=== PATIENT | female | born 1960 | race Caucasian/White ===

== ENCOUNTER → 2016-11-10 | Outpatient (CLI) | payer MEDICARE, MEDICAID ==
[2015-01-31 05:30] VITALS: BP 115/52
[~2016-11-10] MED LIST: AMLO25PO MC; CITA40TA5 PO; LEVO100T PO; LISI10TA2 PO; MELO15TA6 PO; MORP30TA PO; OXYC-250 PO; OXYC10TA PO; OXYC40TA21 PO; TRAM50TA PO
--- NOTE | 2016-11-10 12:25 | RAD ---
CT of the thoracic spine without contrast, 11/10/2016: History: Back pain Noncontrast scans were obtained with multiplanar reconstructions produced. No fracture or destructive bony lesion is seen. There are mild scattered anterior spurs. There are mild degenerative changes involving scattered facet joints bilaterally. The disc margins are not clearly defined in this patient. There is no evidence of central spinal stenosis. There has been a lower cervical anterior fusion with a fixation plate and screws in place. IMPRESSION: 1. Mild scattered degenerative changes. 2. No acute abnormality is detected. PQRS Compliance Statement: One or more of the following individualized dose reduction techniques were utilized for this examination: 1. Automated exposure control 2. Adjustment of the mA and/or kV according to patient size 3. Use of iterative reconstruction technique
--- NOTE | 2016-11-10 12:42 | RAD ---
Indication back pain. Axial images through the lumbar spine were obtained. The thoracic spine was also evaluated which is the subject of a separate dictation. There is a left adrenal adenoma similar to a study 03/18/2015. Known right renal cyst is reproduced. A definite significant soft tissue finding in the visualized abdomen or pelvis is not seen. Spinal fixation cage is noted at L4-5. There is considerable disc space narrowing at L4-5. Vertebral height is well maintained. There is very minimal anterolisthesis of L4 relative to L5. An acute bony finding in the lumbar spine is not seen. Additional facet degenerative changes are seen at L2-3 and L3-4. Laminectomy defect on the right is seen at L4. The thoracolumbar junction is unremarkable. At L1-2 L2-3 and L3-4 no spinal stenosis or significant foraminal narrowing is seen. There is moderate right neural foraminal encroachment. None is seen on the left. No significant finding is seen at L5-S1. IMPRESSION: Postop changes. Underlying spondylitic changes. No acute finding. Moderate right neural foraminal encroachment at L4-5 PQRS Compliance Statement: One or more of the following individualized dose reduction techniques were utilized for this examination: 1. Automated exposure control 2. Adjustment of the mA and/or kV according to patient size 3. Use of iterative reconstruction technique
== END | disposition home or self-care (01) ==
LOC: CT 10:17
PROVIDERS: ATTEND Anesthesiology Pain Medicine
DX: M54.16 Radiculopathy, lumbar region (principal); M54.14 Radiculopathy, thoracic region
CPT/HCPCS: 72128; 72131

== ENCOUNTER 2017-08-18 02:39 | Emergency (ER) | payer MEDICARE, MEDICAID ==
[~2017-08-18] VITALS: Ht 167.6 cm; Wt 120.2 kg
[~2017-08-18 02:39] MED LIST changes: -OXYC-250 PO; +OXYC-328 PO
--- NOTE | 2017-08-18 02:44 | ED.ADGEN ---
Past History Past Medical History: Hypertension, Hyperthyroid, Renal Disease, Sciatica, Other Past Surgical History: Cervical Fusion, Lumbar Laminectomy, Other Smoking: Quit Greater Than 1 Year Alcohol Use: None Drug Use: None Adult General Chief Complaint Chief Complaint ".. I woke up with this severe back and abdomen pain... ".." I ve had kidney problems before.. ".. and " some chronic back stuff.. but I off all pains meds now... " HPI HPI Patient is a 57 year old female who presents with above hx and complaints generalized severe upper abdomen pain, nausea, vomiting and mid back pain. Pt. has been vomiting since 2000 hrs. last night. Patient denies any trauma. Patient denies any immunosuppression. Patient denies any history of kidney stones but does have a history of renal disease which she follows with Dr. Castillo. Patient denies any intake of bad food. Did eat a " [employer] TV dinner at 6:30 (1829) Rx 9. Patient reports she's had normal stools prior to tonight. Patient is complaining of some nausea. No recent travel or specific ill contacts. Patient normally follows with Dr. Camargo. Patient does have a history of sciatica, hypothyroid and hypertension. Pt. does not drink. Pt. never had gall bladder or pancreatitis issues. Review of Systems Review of Systems Constitutional: Denies fever or chills [] Eyes: Denies change in visual acuity, redness, or eye pain [] HENT: Denies nasal congestion or sore throat [] Respiratory: Denies cough or shortness of breath [] Cardiovascular: No additional information not addressed in HPI [] GI: Complaints of abdominal pain, nausea. Denies, vomiting, bloody stools or diarrhea [] : Denies dysuria or hematuria [] Musculoskeletal: Complaints of mid back pain . Hx of some generalized joint pain [] Integument: Denies rash or skin lesions [] Neurologic: Denies headache, focal weakness or sensory changes [] Endocrine: Denies polyuria or polydipsia [] All other systems were reviewed and found to be within normal limits, except as documented in this note. Family History Family History Mother had hx of gall bladder dz. Current Medications Current Medications Current Medications Medications (Trade) Dose Ordered Sig/Guido Start Time Stop Time Status Last Admin Dose Admin Ceftriaxone Sodium 1 gm/ Sodium Chloride 50 ml @ 100 mls/hr 1X ONCE 08/18/17 04:00 08/18/17 04:52 DC 08/18/17 04:00 100 MLS/HR Ceftriaxone Sodium (Rocephin) 1 gm STK-MED ONCE 08/18/17 04:07 08/18/17 04:08 DC Famotidine (Pepcid Vial) 20 mg 1X ONCE 08/18/17 03:15 08/18/17 03:33 DC 08/18/17 03:34 20 MG Info (Do NOT chart on this entry -- for MONITORING) 1 each PRN DAILY PRN 08/18/17 05:00 08/18/17 06:22 DC Iohexol (Omnipaque 240 Mg/ml) 50 ml STK-MED ONCE 08/18/17 04:33 08/18/17 04:34 DC Iohexol (Omnipaque 300 Mg/ml) 75 ml 1X ONCE 08/18/17 05:00 08/18/17 05:01 DC 08/18/17 05:35 75 ML Lactated Ringer's 1,000 ml @ 1,000 mls/hr Q1H 08/18/17 03:00 08/18/17 03:59 DC 08/18/17 03:33 1,000 MLS/HR Metronidazole 100 ml @ 100 mls/hr 1X ONCE 08/18/17 04:00 08/18/17 04:59 DC 08/18/17 04:11 100 MLS/HR Morphine Sulfate (Morphine 10mg Syringe) 10 mg 1X ONCE 08/18/17 05:15 08/18/17 05:55 DC 08/18/17 05:22 10 MG Ondansetron HCl (Zofran) 8 mg 1X ONCE 08/18/17 03:15 08/18/17 03:33 DC 08/18/17 03:34 8 MG Allergies Allergies Allergies Coded Allergies Type Severity Reaction Last Updated Verified hydrocodone Allergy Mild itching 01/31/15 Yes Physical Exam Physical Exam Constitutional: Moderately acute distress, non-toxic appearance. [] HENT: Normocephalic, atraumatic, bilateral external ears normal, oropharynx moist, no oral exudates, nose normal. [] Eyes: PERRLA, EOMI, conjunctiva normal, no discharge. [] Neck: Normal range of motion, no tenderness, supple, no stridor. [] Old surgical scar. Cardiovascular:Heart rate regular rhythm, no murmur [] Lungs & Thorax: Bilateral breath sounds equal at apexes on auscultation []Rt. chest wall scar. Abdomen: Bowel sounds decreased, soft, some generalized tenderness, no masses, no pulsatile masses. With rebound has and localization to right upper quadrant and epigastric area Skin: Warm, dry, no erythema, no rash. [] Back: Mid back tenderness, no CVA tenderness. Old back surgery scars in lumbar sacral area. Extremities: No tenderness, no cyanosis, no clubbing, ROM intact, no edema. [] Neurologic: Alert and oriented X 3, normal motor function, normal sensory function, no focal deficits noted. [] Psychologic: Affect anxious, judgement normal, mood normal. [] Current Patient Data Vital Signs Vital Signs Date Time Temp Pulse Resp B/P (MAP) Pulse Ox O2 Delivery O2 Flow Rate FiO2 08/18/17 05:55 98.0 86 20 133/56 (81) 93 Room Air Lab Results Laboratory Tests Test 08/18/17 03:30 08/18/17 04:20 White Blood Count 11.9 x10^3/uL (4.0-11.0) H Red Blood Count 5.41 x10^6/uL (3.50-5.40) H Hemoglobin 15.3 g/dL (12.0-15.5) Hematocrit 45.8 % (36.0-47.0) Mean Corpuscular Volume 85 fL (79-100) Mean Corpuscular Hemoglobin 28 pg (25-35) Mean Corpuscular Hemoglobin Concent 34 g/dL (31-37) Red Cell Distribution Width 15.2 % (11.5-14.5) H Platelet Count 221 x10^3/uL (140-400) Neutrophils (%) (Auto) 89 % (31-73) H Lymphocytes (%) (Auto) 7 % (24-48) L Monocytes (%) (Auto) 3 % (0-9) Eosinophils (%) (Auto) 0 % (0-3) Basophils (%) (Auto) 1 % (0-3) Neutrophils # (Auto) 10.5 x10^3uL (1.8-7.7) H Lymphocytes # (Auto) 0.9 x10^3/uL (1.0-4.8) L Monocytes # (Auto) 0.4 x10^3/uL (0.0-1.1) Eosinophils # (Auto) 0.0 x10^3/uL (0.0-0.7) Basophils # (Auto) 0.1 x10^3/uL (0.0-0.2) Prothrombin Time 10.2 SEC (9.4-11.4) Prothrombin Time INR 1.0 (0.9-1.1) PTT 21 SEC (23-33) L Sodium Level 137 mmol/L (136-145) Potassium Level 4.0 mmol/L (3.5-5.1) Chloride Level 98 mmol/L (98-107) Carbon Dioxide Level 31 mmol/L (21-32) Anion Gap 8 (6-14) Blood Urea Nitrogen 27 mg/dL (7-20) H Creatinine 1.3 mg/dL (0.6-1.0) H Estimated GFR (Cockcroft-Gault) 42.1 Glucose Level 243 mg/dL (70-99) H Calcium Level 9.7 mg/dL (8.5-10.1) Total Bilirubin 1.2 mg/dL (0.2-1.0) H Direct Bilirubin 0.7 mg/dL (0.0-0.2) H Aspartate Amino Transferase (AST) 170 U/L (15-37) H Alanine Aminotransferase (ALT) 119 U/L (14-59) H Alkaline Phosphatase 86 U/L (46-116) Creatine Kinase 83 U/L (26-192) Creatine Kinase MB (Mass) 0.7 ng/mL (0.0-3.6) Creatine Kinase MB Relative Index 0.8 % (0-4) Troponin I Quantitative < 0.017 ng/mL (0-0.055) Total Protein 7.7 g/dL (6.4-8.2) Albumin 3.9 g/dL (3.4-5.0) Amylase Level 226 U/L (25-115) H Lipase 17484 U/L (73-393) H Urine Collection Type U cath Urine Color Yellow Urine Clarity Clear Urine pH 6.0 Urine Specific [place] 1.015 Urine Protein Neg (NEG-TRACE) Urine Glucose (UA) Neg mg/dL (NEG) Urine Ketones (Stick) Trace mg/dL (NEG) Urine Blood Mod (NEG) Urine Nitrite Neg (NEG) Urine Bilirubin Neg (NEG) Urine Urobilinogen Dipstick 2 mg/dL (0.2 mg/dL) Urine Leukocyte Esterase Neg (NEG) Urine RBC 20-40 /HPF (0-2) Urine WBC Occ /HPF (0-4) Urine Squamous Epithelial Cells Few /LPF Urine Bacteria Few /HPF (0-FEW) Urine Opiates Screen Pos (NEG) Urine Methadone Screen Neg (NEG) Urine Barbiturates Neg (NEG) Urine Phencyclidine Screen Neg (NEG) Urine Amphetamine/Methamphetamine Neg (NEG) Urine Benzodiazepines Screen Neg (NEG) Urine Cocaine Screen Neg (NEG) Urine Cannabinoids Screen Neg (NEG) Urine Ethyl Alcohol Neg (NEG) EKG EKG My interpretation EKG shows a sinus rhythm at 75 bpm. It is slightly prolonged to the interval. But no findings acute STEMI with contralateral changes.[] Radiology/Procedures Radiology/Procedures My interpretation of Acute Abd. film shows no free air under the diaphragm. Does have findings of prior lumbar fixation and surgical clips, nonspecific bowel gas pattern. Chest portion of film shows prior cervical surgery hardware. Clips on right chest wall.[] Course & Med Decision Making Course & Med Decision Making Pertinent Labs and Imaging studies reviewed. (See chart for details) Discussed presentation, testing and tx. plan with Dr. Kowalski - will accept pt in transfer to [facility]. CT of abd. still pending at 0500 hrs. [] Final Impression Final Impression 1. Abdomen pain 2. Back pain[] 3. Leukocytosis 4. Elevated Lipase/Amylase 5. Elevated LFT's and Saúl 6. Pancreatitis 7. Elevated Glucose- 243. Problems: Dragon Disclaimer Dragon Disclaimer This electronic medical record was generated, in whole or in part, using a voice recognition dictation system. HETAL RENTERIA MD Aug 18, 2017 02:44
[2017-08-18] MEDS ORDERED: IV RINGERS SOLUTION,LACTATED 1,000 ML IV SCH (03:00)
[2017-08-18] MEDS ORDERED: ONDANSETRON PF 4 MG/2 ML VIAL. IV ONE (03:15)
[2017-08-18] MEDS ORDERED: FAMOTIDINE 20 MG/2 ML VIAL IVP ONE (03:15)
[2017-08-18] MEDS ORDERED: MORPHINE SULFATE 10 MG/ML SYRINGE. SQ ONE ×2 (03:15→05:15)
[2017-08-18 03:50] LABS: BASO # 0.1 x10^3/uL (0.0-0.2); BASO % 1 % (0-3); EOS % 0 % (0-3); HEMATOCRIT 45.8 % (36.0-47.0); HEMOGLOBIN 15.3 g/dL (12.0-15.5); LYMPH # 0.9 x10^3/uL (1.0-4.8); LYMPH % 7 % (24-48); MEAN CORPUSCULAR HEMOGLOBIN 28 pg (25-35); MEAN CORPUSCULAR HGB CONC 34 g/dL (31-37); MEAN CORPUSCULAR VOLUME 85 fL (79-100); MONO # 0.4 x10^3/uL (0.0-1.1); MONO % 3 % (0-9); NEUT # 10.5 x10^3uL (1.8-7.7); NEUT % 89 % (31-73); PLATELET COUNT 221 x10^3/uL (140-400); RED BLOOD COUNT 5.41 x10^6/uL (3.50-5.40); RED CELL DISTRIBUTION WIDTH 15.2 % (11.5-14.5); WHITE BLOOD COUNT 11.9 x10^3/uL (4.0-11.0)
[2017-08-18] MEDS ORDERED: cefTRIAXone SODIUM 1 GM VIAL IV ONE (04:07)
[2017-08-18 04:11] LABS: ALBUMIN 3.9 g/dL (3.4-5.0); CALCIUM 9.7 mg/dL (8.5-10.1); CREATININE 1.3 mg/dL (0.6-1.0); DIRECT BILIRUBIN 0.7 mg/dL (0.0-0.2); GFR 42.1; TOTAL BILIRUBIN 1.2 mg/dL (0.2-1.0); TOTAL PROTEIN 7.7 g/dL (6.4-8.2)
[2017-08-18] MEDS ORDERED: IOHEXOL 240 MG/ML 50ML VIAL. ONE (04:33)
--- NOTE | 2017-08-18 04:33 | EKG ---
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
[2017-08-18 04:51] LABS: BARBITURATES NEG (NEG); BENZODIAZEPINES NEG (NEG); CANNABINOIDS NEG (NEG); COCAINE NEG (NEG); METHADONE NEG (NEG); OPIATES POS (NEG); PHENCYCLIDINE NEG (NEG)
[2017-08-18 04:52] LABS: BACTERIA,URINE FEW /HPF (0-FEW); BILIRUBIN,URINE NEG (NEG); CLARITY,URINE CLEAR; COLOR,URINE YELLOW; GLUCOSE,URINE NEG (NEG); NITRITE,URINE NEG (NEG); RBC,URINE 20-40 /HPF (0-2); SQUAMOUS EPITHELIAL CELL,UR FEW /LPF; UROBILINOGEN,URINE 2 mg/dL (0.2 mg/dL); WBC,URINE OCC /HPF (0-4)
[2017-08-18 04:53] LABS: AMPHETAMINE/METHAMPHETAMINE NEG (NEG)
[2017-08-18] MEDS ORDERED: CONTRAST GIVEN MC PRN (05:00)
[2017-08-18] MEDS ORDERED: IOHEXOL 300 MG/ML 75 ML VIAL. IV ONE (05:00)
[2017-08-18 05:55] VITALS: BP 133/56
--- NOTE | 2017-08-18 06:17 | RAD ---
CT scan of the abdomen and pelvis with contrast August 18, 2017 CLINICAL HISTORY: Abdominal pain. TECHNIQUE: After the oral and intravenous administration of contrast, contiguous, 5 mm axial sections were obtained through abdomen and pelvis. 60 cc of Omnipaque 300 were administered intravenously during this examination. One or more of the following individualized dose reduction techniques were utilized for this study: 1. Automated exposure control. 2. Adjustment of the mA and/or kV according to patient size. 3. Use of iterative reconstruction technique. FINDINGS: Images through the lung bases demonstrate minimal dependent subsegmental atelectasis bilaterally. There is mild cardiomegaly. The liver parenchyma has a decreased attenuation consistent with fatty infiltration. The spleen, right adrenal glands and left kidney are within normal limits. A 5.7 cm rounded low-attenuation lesion is seen involving the lower pole of the right kidney. This likely represents a cyst. A 2.8 cm rounded low-attenuation lesion is seen involving left adrenal gland. This likely represents an adrenal adenoma. The pancreas is enlarged and poorly defined. Increased density is seen within the adjacent fat. These findings are consistent with acute pancreatitis. No pancreatic pseudocyst is seen. The gallbladder is distended. The common bile duct is dilated measuring 1.5 cm in diameter. Mild atherosclerotic plaque formation is seen involving the abdominal aorta. The abdominal aorta tapers normally. No free fluid or free air is within the abdomen. There is no evidence of bowel obstruction. The appendix is well-visualized and is within normal limits. Images through the pelvis demonstrate the urinary bladder distended with urine. The uterus is within normal limits. No adnexal mass is seen. A very small amount of free fluid is seen within the pelvis. Calcifications are seen within the pelvis consistent with phleboliths. The patient is post laminectomy, discectomy and fusion using pedicle screws, stabilizing rods and bone graft material at L4-5. Degenerative changes are seen involving the mid and lower lumbar spine. IMPRESSION: Findings consistent with acute pancreatitis. No pancreatic pseudocyst is seen. Electronically signed by: Simone Smith MD (08/18/2017 6:13 AM) [id number]
--- NOTE | 2017-08-18 10:01 | RAD ---
ACUTE ABDOMEN SERIES History: Abdominal and back pain Comparison: AP chest 07/04/2010. Findings: Frontal chest and supine and upright views of the abdomen. Cardiomediastinal silhouette is normal. There is no pleural effusion or pneumothorax. The lungs are clear. Cervical spine fusion hardware. Right axillary surgical clips. No pneumoperitoneum is identified. No dilated loops of bowel are seen. Scattered stool in the colon. There is posterior fusion of L4-L5 and interbody spacer. IMPRESSION: 1. No acute cardiopulmonary process. 2. Nonobstructive bowel gas pattern.
== END 2017-08-18 06:13 | disposition short-term general hospital (02) ==
LOC: ER 02:39
DX: R10.84 Generalized abdominal pain (principal); M54.89 Other dorsalgia; D72.829 Elevated white blood cell count, unspecified; K85.90 Acute pancreatitis without necrosis or infection, unspecified; E80.7 Disorder of bilirubin metabolism, unspecified; R74.8 Abnormal levels of other serum enzymes; R79.89 Other specified abnormal findings of blood chemistry; E09.65 Drug or chemical induced diabetes mellitus with hyperglycemia; E03.9 Hypothyroidism, unspecified; I10 Essential (primary) hypertension; E05.90 Thyrotoxicosis, unspecified without thyrotoxic crisis or storm; N28.9 Disorder of kidney and ureter, unspecified; Z87.891 Personal history of nicotine dependence; Z88.5 Allergy status to narcotic agent
CPT/HCPCS: 36415; 51701; 74022; 74177; 80048; 80076; 80307; 81001; 82150; 82553; 83690; 84484; 85025; 85610; 85730; 93005; 96365; 96372; 96375; 99285; J0696; J2270; J2405; J3490; J7120; Q9967; S0028; G0479

== ENCOUNTER 2018-05-13 02:21 | Emergency (ER) | payer MEDICARE, MEDICAID ==
[~2018-05-13] VITALS: Ht 167.6 cm; Wt 120.2 kg
[2018-05-13 02:25] VITALS: BP 133/56
[2018-05-13] MEDS ORDERED: OXYC5CAP PO (02:42)
--- NOTE | 2018-05-13 02:44 | ED.ADGEN ---
Past History Past Medical History: Hypertension, Hyperthyroid, Renal Disease, Sciatica, Other Past Surgical History: Cervical Fusion, Lumbar Laminectomy, Other Smoking: Quit Greater Than 1 Year Alcohol Use: None Drug Use: None Adult General Chief Complaint Chief Complaint pain HPI HPI out of pain medicien , here for refill Review of Systems Review of Systems Constitutional: Denies fever or chills [] Eyes: Denies change in visual acuity, redness, or eye pain [] HENT: Denies nasal congestion or sore throat [] Respiratory: Denies cough or shortness of breath [] Cardiovascular: No additional information not addressed in HPI [] GI: Denies abdominal pain, nausea, vomiting, bloody stools or diarrhea [] : Denies dysuria or hematuria [] Musculoskeletal: Denies back pain or joint pain [] Integument: Denies rash or skin lesions [] Neurologic: Denies headache, focal weakness or sensory changes [] Endocrine: Denies polyuria or polydipsia [] All other systems were reviewed and found to be within normal limits, except as documented in this note. Allergies Allergies Allergies Coded Allergies Type Severity Reaction Last Updated Verified hydrocodone Allergy Mild itching 05/13/18 Yes Physical Exam Physical Exam Constitutional: Well developed, well nourished, no acute distress, non-toxic appearance. [] HENT: Normocephalic, atraumatic, bilateral external ears normal, oropharynx moist, no oral exudates, nose normal. [] Eyes: PERRLA, EOMI, conjunctiva normal, no discharge. [] Neck: Normal range of motion, no tenderness, supple, no stridor. [] Cardiovascular:Heart rate regular rhythm, no murmur [] Lungs & Thorax: Bilateral breath sounds clear to auscultation [] Abdomen: Bowel sounds normal, soft, no tenderness, no masses, no pulsatile masses. [] Skin: Warm, dry, no erythema, no rash. [] Back: No tenderness, no CVA tenderness. [] Extremities: No tenderness, no cyanosis, no clubbing, ROM intact, no edema. [] Neurologic: Alert and oriented X 3, normal motor function, normal sensory function, no focal deficits noted. [] Psychologic: Affect normal, judgement normal, mood normal. [] EKG EKG [] Radiology/Procedures Radiology/Procedures [] Course & Med Decision Making Course & Med Decision Making Pertinent Labs and Imaging studies reviewed. (See chart for details) [] Final Impression Final Impression [] Problems: (1) Chronic pain Qualifiers: Qualified Codes: G89.4 - Chronic pain syndrome Dragon Disclaimer Dragon Disclaimer This electronic medical record was generated, in whole or in part, using a voice recognition dictation system. MELVA CRUZ MD May 13, 2018 02:44
[2018-05-13] MEDS ORDERED: MORPHINE SULFATE 4 MG/ML DISP.SYRIN. IM ONE (02:45)
[2018-05-13] MEDS ORDERED: MORPHINE SULFATE 4 MG/ML DISP.SYRIN. ONE (02:47)
== END 2018-05-13 02:53 | disposition home or self-care (01) ==
LOC: ER 02:21
DX: G89.4 Chronic pain syndrome (principal); I10 Essential (primary) hypertension; E03.9 Hypothyroidism, unspecified; N28.9 Disorder of kidney and ureter, unspecified; Z87.891 Personal history of nicotine dependence; Z88.5 Allergy status to narcotic agent
CPT/HCPCS: 96372; 99284; J2270

== ENCOUNTER 2018-05-13 03:28 | Emergency (ER) | payer MEDICARE, MEDICAID ==
[~2018-05-13] VITALS: Ht 167.6 cm; Wt 120.2 kg
[~2018-05-13 03:28] MED LIST changes: +OXYC5CAP PO
[2018-05-13 03:30] VITALS: BP 119/56
[2018-05-13] MEDS ORDERED: oxyCODONE/APAP 10/325 1 TAB TABLET PO ONE (03:45)
--- NOTE | 2018-05-13 06:20 | PHYS DOC ---
Adult General Chief Complaint Chief Complaint Chronic pain HPI HPI Procedures old female presented to the emergency department with chronic pain she had her pain medication requests a refill Review of Systems Review of Systems Constitutional: Denies fever or chills [] Eyes: Denies change in visual acuity, redness, or eye pain [] HENT: Denies nasal congestion or sore throat [] Respiratory: Denies cough or shortness of breath [] Cardiovascular: No additional information not addressed in HPI [] GI: Denies abdominal pain, nausea, vomiting, bloody stools or diarrhea [] : Denies dysuria or hematuria [] Musculoskeletal: Denies back pain or joint pain [] Integument: Denies rash or skin lesions [] Neurologic: Denies headache, focal weakness or sensory changes [] Endocrine: Denies polyuria or polydipsia [] All other systems were reviewed and found to be within normal limits, except as documented in this note. Current Medications Current Medications Current Medications Medications (Trade) Dose Ordered Sig/Guido Start Time Stop Time Status Last Admin Dose Admin Oxycodone/ Acetaminophen (Percocet 10/325) 2 tab 1X ONCE 05/13/18 03:45 05/13/18 03:46 DC 05/13/18 03:38 2 TAB Allergies Allergies Allergies Coded Allergies Type Severity Reaction Last Updated Verified hydrocodone Allergy Mild itching 05/13/18 Yes Physical Exam Physical Exam Constitutional: Well developed, well nourished, no acute distress, non-toxic appearance. [] HENT: Normocephalic, atraumatic, bilateral external ears normal, oropharynx moist, no oral exudates, nose normal. [] Eyes: PERRLA, EOMI, conjunctiva normal, no discharge. [] Neck: Normal range of motion, no tenderness, supple, no stridor. [] Cardiovascular:Heart rate regular rhythm, no murmur [] Lungs & Thorax: Bilateral breath sounds clear to auscultation [] Abdomen: Bowel sounds normal, soft, no tenderness, no masses, no pulsatile masses. [] Skin: Warm, dry, no erythema, no rash. [] Back: No tenderness, no CVA tenderness. [] Extremities: No tenderness, no cyanosis, no clubbing, ROM intact, no edema. [] Neurologic: Alert and oriented X 3, normal motor function, normal sensory function, no focal deficits noted. [] Psychologic: Affect normal, judgement normal, mood normal. [] EKG EKG [] Radiology/Procedures Radiology/Procedures [] Course & Med Decision Making Course & Med Decision Making Pertinent Labs and Imaging studies reviewed. (See chart for details) [] Final Impression Final Impression [] Problems: (1) Chronic pain Dragon Disclaimer Dragon Disclaimer This electronic medical record was generated, in whole or in part, using a voice recognition dictation system. MELVA CRUZ MD May 13, 2018 06:20
== END 2018-05-13 03:40 | disposition home or self-care (01) ==
LOC: ER 03:28
DX: G89.29 Other chronic pain (principal); Z88.5 Allergy status to narcotic agent
CPT/HCPCS: 99284

== ENCOUNTER 2018-05-13 04:57 | Emergency (ER) | payer MEDICARE, MEDICAID ==
[~2018-05-13] VITALS: Ht 167.6 cm; Wt 120.2 kg
[2018-05-13 05:00] VITALS: BP 119/56
[2018-05-13] MEDS ORDERED: diazePAM 5 MG TABLET ONE (05:03)
[2018-05-13] MEDS ORDERED: diazePAM 5 MG TABLET PO ONE (05:15)
[2018-05-13] MEDS ORDERED: MORPHINE SULFATE 10 MG/ML SYRINGE. SQ ONE (05:15)
--- NOTE | 2018-05-13 06:18 | ED.ADGEN ---
Past History Past Medical History: Hypertension, Hyperthyroid, Renal Disease, Sciatica, Other Past Surgical History: Cervical Fusion, Lumbar Laminectomy, Other Smoking: Quit Greater Than 1 Year Alcohol Use: None Drug Use: None Adult General Chief Complaint Chief Complaint withdrawal HPI HPI 49 years old female who ran out of her pain medication going through withdrawal requested narcotics Review of Systems Review of Systems Constitutional: Denies fever or chills [] Eyes: Denies change in visual acuity, redness, or eye pain [] HENT: Denies nasal congestion or sore throat [] Respiratory: Denies cough or shortness of breath [] Cardiovascular: No additional information not addressed in HPI [] GI: Denies abdominal pain, nausea, vomiting, bloody stools or diarrhea [] : Denies dysuria or hematuria [] Musculoskeletal: Denies back pain or joint pain [] Integument: Denies rash or skin lesions [] Neurologic: Denies headache, focal weakness or sensory changes [] Endocrine: Denies polyuria or polydipsia [] All other systems were reviewed and found to be within normal limits, except as documented in this note. Current Medications Current Medications Current Medications Medications (Trade) Dose Ordered Sig/Guido Start Time Stop Time Status Last Admin Dose Admin Diazepam (Valium) 10 mg 1X ONCE 05/13/18 05:15 05/13/18 05:52 DC 05/13/18 05:12 10 MG Morphine Sulfate (Morphine 10mg Syringe) 10 mg 1X ONCE 05/13/18 05:15 05/13/18 05:52 DC 05/13/18 05:14 10 MG Allergies Allergies Allergies Coded Allergies Type Severity Reaction Last Updated Verified hydrocodone Allergy Mild itching 05/13/18 Yes Physical Exam Physical Exam Constitutional: Well developed, well nourished, no acute distress, non-toxic appearance. [] HENT: Normocephalic, atraumatic, bilateral external ears normal, oropharynx moist, no oral exudates, nose normal. [] Eyes: PERRLA, EOMI, conjunctiva normal, no discharge. [] Neck: Normal range of motion, no tenderness, supple, no stridor. [] Cardiovascular:Heart rate regular rhythm, no murmur [] Lungs & Thorax: Bilateral breath sounds clear to auscultation [] Abdomen: Bowel sounds normal, soft, no tenderness, no masses, no pulsatile masses. [] Skin: Warm, dry, no erythema, no rash. [] Back: No tenderness, no CVA tenderness. [] Extremities: No tenderness, no cyanosis, no clubbing, ROM intact, no edema. [] Neurologic: Alert and oriented X 3, normal motor function, normal sensory function, no focal deficits noted. [] Psychologic: Affect normal, judgement normal, mood normal. [] EKG EKG [] Radiology/Procedures Radiology/Procedures [] Course & Med Decision Making Course & Med Decision Making Pertinent Labs and Imaging studies reviewed. (See chart for details) [] Final Impression Final Impression [] Problems: (1) Chronic pain Dragon Disclaimer Dragon Disclaimer This electronic medical record was generated, in whole or in part, using a voice recognition dictation system. MELVA CRUZ MD May 13, 2018 06:18
== END 2018-05-13 05:20 | disposition home or self-care (01) ==
LOC: ER 04:57
DX: G89.29 Other chronic pain (principal); F15.93 Other stimulant use, unspecified with withdrawal; I10 Essential (primary) hypertension; E03.9 Hypothyroidism, unspecified; N28.9 Disorder of kidney and ureter, unspecified; Z87.891 Personal history of nicotine dependence; Z88.5 Allergy status to narcotic agent
CPT/HCPCS: 96372; 99284; J2270